=== PATIENT | female | born 1960 | race Caucasian/White ===

== ENCOUNTER 2025-04-22 19:04 | Inpatient (IN) | payer MEDICARE, BC ==
[~2025-04-22] VITALS: Ht 14 cm; Wt 68.4 kg
[2025-04-22 19:00] VITALS: BP 111/70; PULSE 67; RESP 14; TEMP 98.2; O2SAT 95
[2025-04-22] MEDS ORDERED: magnesium sulf-water 4G/100mL 100 ML IV PRN (20:00)
[2025-04-22] MEDS ORDERED: mag hydrox/Alum hydrox/simeth 30ml oral suspension PO PRN (20:00)
[2025-04-22] MEDS ORDERED: magnesium Cl slow-release 64mg tablet PO PRN (20:00)
[2025-04-22] MEDS ORDERED: magnesium sulf-water 2g/50mL 50 ML IV PRN (20:00)
[2025-04-22] MEDS: K and/or MAG REPLACEMENT MC SCH (20:00)
[2025-04-22] MEDS: PERFLUTREN PROTEIN-A MICROSPHR (Optison) 0.22 MG/ML 3ML VIAL IV ONE (20:00)
[2025-04-22] MEDS ORDERED: potassium Cl 20 mEq SR tablet PO PRN ×2 (20:00)
[2025-04-22] MEDS ORDERED: magnesium hydroxide 30ml (MOM) UD suspension PO PRN (20:00)
[2025-04-22] MEDS ORDERED: potassium Cl 40MEQ/1/2NS 520ml 520 ML IV PRN (20:00)
--- NOTE | 2025-04-22 20:20 | HISTORY AND PHYSICAL-Residence ---
History & Physical Providers to CC Resident Creating Document: PAYALBINDU MORELAND, RES CC: MARIA A CORREA MD ~ History of Present Illness Reason for Admit\Complaint: ATYPICAL CHEST PAIN History of Present Illness A 65-year-old patient is a transfer from [facility], patient was admitted in [facility] because of acute left-sided chest pain associated with radiation to jaw and neck. She rated the pain a five on 10, described the pain as stabbing with a combination of pressure kind of pain. Patient was sleeping well she experienced this chest pain. She eventually went to [place] [facility], EKG showed sinus bradycardia, initially troponins were negative as well. Patient was given NTG which relieved the pain. Patient was eventually admitted and worked up. Echocardiogram in [facility] which showed EF of 70-75% with no wall motion abnormalities. BNP was normal limits. Lexiscan which showed no significant focal ischemia. Abnormal dilation of left ventricle with stress causing an elevated TID of 1.57. Suggesting global coronary artery stenosis Echocardiogram showed EF of 70-75%, systolic function is hyperdynamic. No wall motion abnormalities were noted Patient lives in her house with her Patient's primary care doctor is Claudio Figueroa, red Mora Stated that she is normally an active person, ambulates on her own. Allergies: Coded Allergies: pollen extracts (Verified Allergy, Unknown, 04/22/25) Uncoded Allergies: DUST MITES (Allergy, Unknown, 04/22/25) Past Medical History Past Medical History Hyperlipidemia Anxiety Cervical dysplasia in the past for which she underwent mild ablation surgeries Past Surgical History Surgical History Comment Unilateral ovariectomy Past Social History Social History Comment Patient denies any alcohol/tobacco use history Patient states that she does smoke marijuana occasionally ROS ROS Constitutional: No fever, dizziness, no weakness, no decrease in appetite HEENT: Normal vision. No sore throat, epistaxis, tinnitus Cardiovascular: Mild chest pain/discomfort, no palpitations, syncope. no pedal edema Respiratory: No sob, cough,hemoptysis Gastrointestinal: No abdominal pain, nausea, vomiting. No diarrhea, melena. Genitourinary: No frquency, urgency, incontinence, nocturia. No dysuria, hematuria Musculoskeletal: Normal, no pains Endocrine: No fatigue, polydipsia, polyuria. No heat or cold intolerance Neurologic: No headache, vertigo. No weakness, numbness or tingling of extremities Psychiatric: No hallucinations/delusions, no anhedonia, no suicidal ideation Hematologic: No bruises Exam Vitals: Vital Signs Date Time Temp Pulse Resp B/P (MAP) Pulse Ox O2 Delivery O2 Flow Rate FiO2 04/22/25 18:50 59 General: General: Awake, oriented to person, place and time HEENT: Conjunctive are pink, sclerae clear, no icterus, pupil is equal in both sides, reactive to light, no ear discharge, no pharyngeal erythema or an edema. Neck: Supple, no JVD, no lymphadenopathy and thyromegaly. Chest: Equal air entry on both lungs, no additional sounds no rhonchi no wheezing at the moment. Cardiovascular: S1-S2 regular sinus rhythm and, regular rate, no gallops, no rubs, no murmurs Abdomen: No visible peristalsis, Bowel sounds present on auscultation, soft, no tenderness, no guarding, no rigidity Extremities: No obvious deformities, no pitting edema bilaterally, capillary refill intact, peripheral pulsations are intact on both sides Neurologic: Mental status: alert and conscious, oriented to place, person and time, preserved memory, normal speech. Cranial nerves I-XII: Normal. Motor system: Preserved power, coordination, no evidenced involuntary movements, strength 5/5 in four extremities. 2+ deep tendon reflexes in biceps, triceps, quadriceps. Negative Babinski. Cerebellar: No nystagmus, dysdiadochokinesia, normal xidenf-ya-jcyo testing. Musculoskeletal: No joint swelling, deformities, inflammations, and no scoliosis and back tenderness Skin: Warm and dry. Dry oral mucosa. Diagnostic Data Last Recorded Lab Results: 04/23/2551604/23/25516 Advance Care Planning Advanced Care plannin - 30 Minutes (Spent 17 minutes discussing advanced care directive/resuscitative measures, patient decided she want to be full code) Additional Plan Atypical chest pain Heart score three As per records from [place], patient's troponin was normal, EKG did not show any acute findings Lexiscan reported no significant focal ischemia. Abnormal dilation of left ventricle with stress causing an elevated TID of 1.57. Suggesting global coronary artery stenosis Echocardiogram showed EF of 70-75%, systolic function is hyperdynamic. No wall motion abnormalities were noted environmental monitoring specialist shows sinus bradycardia, no ST segment elevation or acute changes Patient does not meet criteria for NSTEMI/STEMI Plan Ordered serial EKGs, troponins Initiated the patient on aspirin 81 mg, atorvastatin 80 mg NTG 0.4 mg p.r.n. Morphine p.r.n. Consult cardiology in the a.m. Hyperlipidemia Ordered lipid panel Initiated the patient on 80 mg atorvastatin History of anxiety Waiting med rec Code Status: Full code DVT Prophylaxis: Heparin Analgesia/Sedation: Morphine Lines/Tubes: PIV Nutrition: NPO PT:yes Prognosis: Guarded Disposition: Continue to monitor serial troponins and serial EKGs. Continue telemetry monitoring. Consult Cardiology in the a.m. keeping the patient NPO as she might require cardiac catheterization in the morning Bindu Mantilla MD Internal medicine resident,PGY-1 Date of Service: Apr 22, 2025 Billing Provider: MARIA A CORREA MD Addendum Attestation I agree with the residents assessment and plan as below: 65 year old female with no pmhx admitted with chest pain Plan: repeat EKG trend troponin start asa and high intensity statin cardiology consult CCT 55 min using HIPPA compliant A/V technology BINDU MANTILLA, RES Apr 22, 2025 20:20 MARIA A CORREA MD Apr 23, 2025 12:28
[2025-04-22] MEDS: docusate sod 100mg capsule PO SCH (21:37)
[2025-04-22] MEDS: aspirin 81mg, enteric-coated 1 TAB TABLET.DR PO SCH (21:37)
[2025-04-22 22:00] VITALS: BP 113/49; PULSE 75; RESP 18; TEMP 98.1; O2SAT 94
[2025-04-22 22:33] LABS: CREATININE 0.64 MG/DL (0.40-0.90); TOTAL CARBON DIOXIDE 26.8 MMOL/L (24-32); eGFR > 90 ML/MIN
[2025-04-22 22:39] LABS: CHOL/HDL RATIO 3.2 (0.00-4.99); LDL CHOLESTEROL 101 MG/DL (50-100); PHOSPHORUS 3.4 MG/DL (2.3-4.5); PRO BRAIN NATRIURETIC PEPTIDE 71 PG/ML (0-125)
[2025-04-22 22:44] VITALS: RESP 13; O2SAT 96
[2025-04-22 23:04] LABS: MEAN PLATELET VOLUME 7.8 FL (7.4-10.4); RED CELL DISTRIBUTION WIDTH 13.7 % (11.5-14.5)
--- NOTE | 2025-04-22 23:24 | RADIOLOGY REPORT ---
CHEST RADIOGRAPH Indication: chest pain Technique: Single frontal view of the chest was obtained COMPARISON: None FINDINGS: Lines and Tubes: None Lungs: Clear Pleura: No effusion. No pneumothorax. Cardiomediastinal contours: Unremarkable Bones: Unremarkable IMPRESSION: 1. No acute disease.
[2025-04-22] MEDS: heparin, porcine 5000 units/ml vial SQ SCH (23:30)
[2025-04-22] MEDS: normal saline 1000ml 1,000 ML IV SCH (23:35)
[2025-04-23] VITALS (15 sets, daily range): BP systolic 100–139; BP diastolic 63–96; PULSE 61–112; RESP 8–18; TEMP 97.1–98.2; O2SAT 95–98
[2025-04-23 06:10] LABS: MEAN PLATELET VOLUME 8.0 FL (7.4-10.4); RED CELL DISTRIBUTION WIDTH 13.8 % (11.5-14.5)
[2025-04-23 06:26] LABS: CREATININE 0.61 MG/DL (0.40-0.90); TOTAL CARBON DIOXIDE 25.5 MMOL/L (24-32); eGFR > 90 ML/MIN
--- NOTE | 2025-04-23 07:53 | ELECTROCARDIOGRAPH REPORT ---
[facility] Test Date: 2025-04-23 Test Time: 07:50:58 Pat Name: SHRUTI CLOUD Department: [facility] 3S Patient ID: [facility]-[id number] Room: [place] [id number] A Gender: F Landscape Crew Member: RENATA : 1960 Requested By: GUERO MANTILLA Order Number: [id number] Reading MD: Dr. SADIE Zaman Measurements Intervals [place] Rate: 61 P: 1 AL: 146 QRS: 41 QRSD: 93 T: 23 QT: 407 QTc: 410 Interpretive Statements Sinus rhythm Borderline low voltage, extremity leads RSR' in V1 or V2, right VCD or RVH Electronically Signed On 04-23-2025 19:48:[address] SADIE Zaman Please click the below link to view image of tracing.
[2025-04-23] MEDS ORDERED: CHOL1CAP11 (09:57)
[2025-04-23] MEDS ORDERED: ATOR10TA87 PO (09:57)
[2025-04-23] MEDS ORDERED: CALC-1215 PO (09:57)
[2025-04-23] MEDS ORDERED: LORA10TA7 PO (09:57)
[2025-04-23] MEDS ORDERED: SELE200C3 PO (09:57)
[2025-04-23] MEDS ORDERED: HYDR-3686 PO (09:57)
[2025-04-23] MEDS ORDERED: MELA5TAB12 PO (09:57)
[2025-04-23] MEDS ORDERED: ALEN70TA80 PO (09:57)
[2025-04-23] MEDS ORDERED: ESCI-8 PO (09:57)
[2025-04-23] MEDS ORDERED: AZEL137S4 BOTHNARES (09:57)
[2025-04-23] MEDS ORDERED: MAGN400C PO (09:57)
[2025-04-23] MEDS ORDERED: MULT-1085 PO (09:57)
[2025-04-23] MEDS: HYDROcodone/acetaminophen 5mg/325mg tablet PO PRN (14:26)
[2025-04-23] MEDS ORDERED: fentaNYL/PF 50MCG/1 ML 2ML syringe ONE (15:58)
[2025-04-23] MEDS ORDERED: midazolam 1 mg/ML 2ml injection ONE (15:58)
[2025-04-23] MEDS ORDERED: LIDOcaine 1% (10mg/ml) 2ml vial ONE (15:58)
[2025-04-23] MEDS ORDERED: verapamil 2.5 mg/ml inj IV ONE (15:58)
[2025-04-23] MEDS ORDERED: heparin 1,000unit/ml 10ml vial 10 ML ONE (15:59)
[2025-04-23] MEDS ORDERED: iohexol 350 MG/ML 50ML vial IV ONE (15:59)
[2025-04-23] MEDS ORDERED: nitroGLYCERIN 500mcg/5mL D5W 5 ML IV ONE (16:00)
--- NOTE | 2025-04-23 16:24 | CONSULTATION REPORT - RESIDENT ---
Consult Providers to CC Resident Creating Document: SNEHA HAMEED, RES CC: GARRICK HOPE MD History of Present Illness Reason for Admit\Complaint: Abnormal Lexiscan History of Present Illness A 65-year-old female with PMH of HLD was transferred from [place] in view of abnormal Lexiscan. On further conversations with the patient, patient states that she has intermittent chest pains that has been constant for one day- the day prior to admission, substernal in location, 6/10 in severity, increased on deep inspiration with radiation to the neck and jaw. Patient had associated shortness of breath, dizziness, diaphoresis during this episode. Patient was given one tab of nitro and aspirin that did not relieve his chest pain. Patient was given morphine at helped with chest pain. Patient had a Lexiscan done at [place] that revealed no reversible defect but transient ischemic dilatation of 1.5 indicating global coronary artery disease. Cardiology is consulted in view of the above. Allergies: Coded Allergies: pollen extracts (Verified Allergy, Unknown, 04/22/25) Uncoded Allergies: DUST MITES (Allergy, Unknown, 04/22/25) Home Medications Home Medications Active Reported Melatonin 5 Mg Tab.rapdis 1 Tab PO HS PRN 30 Days Magnesium (Magnesium Oxide) 400 Mg Magnesium Capsule 2 Cap PO DAILY 30 Days Calcium + D 600 Mg Tablet (Calcium Carbonate/Vitamin D3) 600 Mg Calcium-10 Mcg (400 Unit) Tablet 2 Tab PO DAILY 30 Days K2-D3 5000 90-125 Mcg Capsule (Cholecalciferol (Vitd3)/Vit K2) 125 Mcg (5000 Unit)-90 Mcg Capsule Multi Vitamin Daily (Multivitamin) 1 Each Tablet 1 Tab PO DAILY 30 Days Selenium (Selenomethionine) 200 Mcg Capsule 100 Mcg PO DAILY Loratadine 10 Mg Tablet 1 Tab PO DAILY 30 Days Alendronate Sodium 70 Mg Tablet 1 Tab PO Q7D 28 Days in the morning, at least 30 minutes before the first food, beverage, or medication of the day Atarax* (Hydroxyzine HCl) 25 Mg Tablet 2 Tab PO HS PRN Escitalopram Oxalate 10 Mg Tablet 1 Tab PO DAILY 30 Days Lipitor* (Atorvastatin Calcium) 10 Mg Tablet 1 Tab PO DAILY 30 Days Azelastine HCl 137 Mcg (0.1 %) [place].pump 2 Sprays BOTHNARES Q12H 30 Days Past Medical History Past Medical History HLD Anxiety Cervical dysplasia Past Surgical History Surgical History Comment Unilateral ovariectomy Family History Family History: FHx: cancer MOTHER Past Social History Social History Comment Denies alcohol, tobacco use She smokes marijuana occasionally Lives at home with her has been PCP: Claudio Figueroa, kiera Sherman Exam Vitals: Vital Signs Date Time Temp Pulse Resp B/P (MAP) Pulse Ox O2 Delivery O2 Flow Rate FiO2 04/23/25 15:30 18 04/23/25 15:00 97.2 70 125/72 (89) 97 Room Air General: General: Alert, awake, oriented, not in acute distress HEENT: PERRLA, no icterus, pallor, lymphadenopathy, carotid bruit Respiratory system: Bilateral vesicular breath sounds heard, no adventitious breath sounds CVS: S1-S2 heard, no murmurs/rubs/gallop GI: Soft, nontender, no organomegaly, no guarding/rigidity, bowel sounds present Neuro: No focal neurological deficits present Mental status exam: memory, speech -intact - Cranial nerve test: Cranial nerves 2-12 intact - Motor system: Nutrition, Tone 3+, Power 5/5, no involuntary movements - Sensory system: Intact - Reflex testing: Biceps, triceps and knee reflexes 2+ - Cerebellar: Normal Extremities: No edema cyanosis clubbing/deformities Skin: Warm and dry Diagnostic Data Last Recorded Lab Results: 04/23/2551604/23/25516 Additional Plan Assessment: 65-year-old female with PMH of HLD was transferred from [facility] in view of abnormal Lexiscan. Speech Professor consulted in view of the above. Plan: CAD, under evaluation Lexiscan: TID indicative of global CAD Echo: EF: 70-75% at OSH with no wall motion abnormalities Patient is scheduled for cardiac catheterization today Aspirin 81 mg, atorvastatin 80 mg, nitroglycerin 0.4 mg p.r.n. Hyperlipidemia LDL: 101 Continue atorvastatin 80 mg Code status: Full code Diet: Heart healthy Anticoagulation: Aspirin 81 mg Disposition: Scheduled for cardiac catheterization today, cardiology we will continue to follow up with the patient Sneha Hameed MD Internal Medicine, PGY 2 Patient seen and examined by Dr. Inocencia BENJAMIN. Subsequently patient underwent coronary angiography with no significant CAD. Sepsis Screening Reassessment Date: Apr 23, 2025 Date of Service: Apr 23, 2025 Billing Provider: GARRICK HOPE MD, SIVA, RES Apr 23, 2025 16:23 GARRICK HOPE MD Apr 23, 2025 20:25
--- NOTE | 2025-04-23 16:26 | PROGRESS NOTE- Residence ---
Progress Note - Resident Providers to CC Resident Creating Document: YARA GOSS RES ~ Antibiotic Timeout Antibiotic Ordered?: No Subjective Patient was seen and examined at the bedside. She is completely asymptomatic at this moment. She reports a history of significant left side chest pain two days ago while walking to the bathroom, resolved after she went to the ER. Troponins were negative, Lexiscan was concerning for coronary artery disease and she was transferred here for further management. No chest pain or shortness for breath since admission. Objective Vital Signs Date Time Temp Pulse Resp B/P (MAP) Pulse Ox O2 Delivery O2 Flow Rate FiO2 04/23/25 15:30 18 04/23/25 11:00 98.1 81 120/70 (87) 98 Room Air Result Diagram: 04/23/2551604/23/25516 General: Awake, oriented to person, place and time HEENT: Conjunctive are pink, sclerae clear, no icterus, pupil is equal in both sides, reactive to light, no ear discharge, no pharyngeal erythema or an edema. Neck: Supple, no JVD, no lymphadenopathy and thyromegaly. Chest: Equal air entry on both lungs, no additional sounds no rhonchi no wheezing at the moment. Cardiovascular: S1-S2 regular sinus rhythm and, regular rate, no gallops, no rubs, no murmurs Abdomen: No visible peristalsis, Bowel sounds present on auscultation, soft, no tenderness, no guarding, no rigidity Extremities: No obvious deformities, no pitting edema bilaterally, capillary refill intact, peripheral pulsations are intact on both sides Neurologic: Mental status: alert and conscious, oriented to place, person and time, preserved memory, normal speech. Cranial nerves I-XII: Normal. Motor system: Preserved power, coordination, no evidenced involuntary movements, strength 5/5 in four extremities. 2+ deep tendon reflexes in biceps, triceps, quadriceps. Negative Babinski. Cerebellar: No nystagmus, dysdiadochokinesia, normal pbftip-pd-ykjz testing. Musculoskeletal: No joint swelling, deformities, inflammations, and no scoliosis and back tenderness Skin: Warm and dry. Moist oral mucosa. Plan Plan Assessment A 65-year-old female patient was transferred from [facility] due to chest pain and altered Lexiscan results. 1) Chest Pain: Rule Out ACS Global coronary artery disease is suspected. - Heart Score: 3 points - The patient experienced severe left-sided chest pain two days ago, which radiated to the jaw but was relieved with nitroglycerin. - The Lexiscan indicated no significant focal ischemia but showed abnormal dilation of the left ventricle with stress, resulting in an elevated TID of 1.57, suggesting global coronary artery stenosis. - Echocardiogram revealed an EF of 70-75%, with hyperdynamic systolic function and no wall motion abnormalities noted. - Chest x-ray: No acute disease. - The patient presented with sinus bradycardia; the heart rate is now in the 70s, with no ST segment elevation or acute changes. Plan - The patient has been started on: - Aspirin 81 mg - Atorvastatin 80 mg (increased from 20 mg) - Nitroglycerin 0.4 mg as needed - Cardiology has been consulted. - Angiogram is planned for tonight or tomorrow morning. - Continuous telemetry 2) Hyperlipidemia: well-controlled - Cholesterol: 191, Triglycerides: 114, LDL: 101,HDL: 60 - Atorvastatin increased from 20 mg to 80 mg daily 3) History of anxiety and depression -Continue citalopram daily. Code Status: Full code DVT Prophylaxis: Heparin Analgesia/Sedation: Morphine Lines/Tubes: PIV Nutrition: NPO PT: Pending Prognosis: Guarded Disposition: Continue medical treatment, pending angiogram. Resident MD attestation The above note has been reviewed and supervised by a senior resident PGY2/PGY3 Patient was seen, examined and discussed with the attending physician Date of Service: Apr 23, 2025 Billing Provider: JOHNATHON VAZ MD, LUCAS, RES Apr 23, 2025 16:26
[2025-04-23] MEDS: normal saline 1000ml 1,000 ML IV SCH ×2 (17:54→23:22)
--- NOTE | 2025-04-23 18:09 | CARDIOLOGY REPORT ---
DATE OF SERVICE: 04/23/2025 DICTATING PHYSICIAN: SADIE Zaman MD DATE OF PROCEDURE: 04/23/2025 GENDER: Female. AGE: 65 years. HEIGHT: 5 feet 5 inches (165 cm). WEIGHT: 68.4 kg. INDICATION: The patient is a 65-year-old postmenopausal female with hyperlipidemia, developed epigastric substernal chest discomfort radiating to the left side, went to [facility], underwent echocardiogram which showed EF of 70% to 75% and a myocardial perfusion scan showed abnormal dilation of the left ventricle with stress causing an ST elevated TID of 1.57. Because of this, she was transferred to [facility]. Her troponins are negative. Option of continuing medical therapy or further coronary angiography with risks, benefits, and alternatives were discussed in detail with the patient. The patient in view of her age, hyperlipidemia, family history and symptoms, preferred to proceed with coronary angiography. Risks, benefits, and alternative options were discussed and informed consent obtained. PROCEDURE TECHNIQUE: The patient underwent left heart catheterization with right radial approach, 6-Hungarian right radial sheath. Postprocedure access site hemostasis with right radial band. The patient tolerated the procedure well. COMPLICATIONS: None. PROCEDURES DONE: 1. Ultrasound-guided right radial artery visualization access. 2. Left heart catheterization. 3. LVG. 4. Coronary cineangiography. 5. Conscious sedation time for 30 minutes. FINDINGS: HEMODYNAMICS: Aortic systolic 120/59, mean 83 mmHg. LVEDP of 10 mmHg. There is no significant gradient across the aortic valve. LEFT VENTRICULOGRAM: Overall left ventricular systolic function is about 65% to 70%. CORONARY CINEANGIOGRAPHY: Left main coronary artery is of large caliber without any luminal irregularities and engaged with JL4 catheter, right radial approach. LAD is a medium caliber vessel arising at the bifurcation of left main, courses through the anterior intraventricular groove and ends up by wrapping around the apex. LAD has minimal luminal irregularities. Diagonal 1 is 2.25 mm with minimal luminal irregularities. Diagonal 2 is 2 mm caliber with minimal luminal irregularities. Circumflex artery is a medium caliber vessel, continuing as a principal obtuse marginal branch, is 3 mm in diameter with mild luminal irregularities. Right coronary artery is a medium caliber dominant vessel arising from the right aortic sinus, courses the right AV groove, ends at the posterior crux by dividing into PDA and a posterolateral branch. RCA and its branches show mild luminal irregularities. IMPRESSION: A 65-year-old female with ejection fraction of 65% to 70%. LVEDP 16 mmHg. No gradient across the aortic valve. Left main normal. LAD and diagonal minimal disease. Circumflex with minimal disease. RCA minor luminal irregularities. RECOMMENDATIONS: Recommend continued aggressive coronary risk factor modification, namely low-fat/low-cholesterol diet, maintaining ideal body weight, keeping LDL under 70 mg/dL, and regular exercise program. SADIE Zaman MD TID: [id number] RECEIPT: [id number] CRISTIAN/TAMMY cc: TATIANNA HAY DO
--- NOTE | 2025-04-23 19:34 | CARDIOLOGY REPORT ---
APPROVED REPORT EXAM: Limited 2D, Doppler, and color-flow Echocardiogram. Patient Location: 302 Blood Pressure: 100/63 mmHg Heart Rate: 73 bpm Rhythm: NSR Indications Chest Pain Limited to evaluate function No spike driver Previous echo 04/21/25 St E 70-75% EF 2D Dimensions Aortic Root(2D) 3.1 cm LEFT VENTRICLE LV appears normal in size and thickness. Overall systolic function appears normal. Overall LVEF is 70%. RIGHT VENTRICLE RV appears normal in size and function. MITRAL VALVE MV is thickened with mild annular thickening and no stenosis. Trivial mitral regurgitation. TRICUSPID VALVE The tricuspid valve is normal in structure. Trace tricuspid regurgitation. GREAT VESSELS The aortic root is normal in size. PERICARDIUM There is no pericardial effusion. Other Information Study Quality: Adequate Conclusion Overall LVEF is 70%. LV appears normal in size and thickness. Overall systolic function appears normal. RV appears normal in size and function. Trivial mitral regurgitation. Trace tricuspid regurgitation. There is no pericardial effusion.
[2025-04-23] MEDS: azelastine Nasal Spray bottle NS SCH (21:09)
[2025-04-23] MEDS: ondansetron/PF 4mg/2ml inj IV PRN (21:39)
[2025-04-24 02:00] VITALS: BP 102/60; PULSE 76; RESP 14; TEMP 97.5; O2SAT 94
[2025-04-24 06:00] VITALS: BP 114/71; PULSE 70; RESP 12; TEMP 97.2; O2SAT 97
[2025-04-24 06:33] LABS: MEAN PLATELET VOLUME 8.2 FL (7.4-10.4); RED CELL DISTRIBUTION WIDTH 13.4 % (11.5-14.5)
[2025-04-24 06:45] LABS: CREATININE 0.47 MG/DL (0.40-0.90); TOTAL CARBON DIOXIDE 26.7 MMOL/L (24-32); eGFR > 90 ML/MIN
[2025-04-24 08:00] VITALS: RESP 14; O2SAT 96
--- NOTE | 2025-04-24 08:19 | ELECTROCARDIOGRAPH REPORT ---
[facility] Test Date: 2025-04-24 Test Time: 07:06:20 Pat Name: SHRUTI CLOUD Department: [facility] 3S Patient ID: [id number] Room: [place] [id number] A Gender: F Phlebotomy Specialist: RENATA : 1960 Requested By: GARRICK HOPE Order Number: [id number] Reading MD: Dr. SADIE Hope Measurements Intervals [place] Rate: 68 P: 21 SC: 150 QRS: 56 QRSD: 103 T: 50 QT: 403 QTc: 429 Interpretive Statements Sinus rhythm RSR' in V1 or V2, right VCD or RVH Electronically Signed On 04-24-2025 16:51:[address] SADIE Hope Please click the below link to view image of tracing.
[2025-04-24] MEDS: ESCITALOPRAM 10 mg tablet 10 MG TABLET PO SCH (08:33)
[2025-04-24] MEDS ORDERED: ATOR20TA66 PO (08:52)
--- NOTE | 2025-04-24 10:32 | PROGRESS NOTE- Residence ---
Progress Note - Resident Providers to CC Resident Creating Document: ANDREA HUDDLESTON, RES CC: GARRICK HOPE MD ~ Antibiotic Timeout Antibiotic Ordered?: No Subjective Patient is seen and examined at bedside. Patient states that she has having a headache and feeling nauseous this morning. Otherwise she does not have any new complaints with regards to chest pain, palpitations, shortness of breaths. Patient underwent cardiac catheterization yesterday and revealed mild to moderate CAD. Objective Vital Signs Date Time Temp Pulse Resp B/P (MAP) Pulse Ox O2 Delivery O2 Flow Rate FiO2 04/24/25 06:00 97.2 70 12 114/71 (85) 97 Room Air Result Diagram: 04/24/2554204/24/25542 General: Alert, awake, oriented, not in acute distress HEENT: PERRLA, no icterus, pallor, lymphadenopathy, carotid bruit Respiratory system: Bilateral vesicular breath sounds heard, no adventitious breath sounds CVS: S1-S2 heard, no murmurs/rubs/gallop GI: Soft, nontender, no organomegaly, no guarding/rigidity, bowel sounds present Neuro: No focal neurological deficits present Mental status exam: memory, speech -intact - Cranial nerve test: Cranial nerves 2-12 intact - Motor system: Nutrition, Tone 3+, Power 5/5, no involuntary movements - Sensory system: Intact - Reflex testing: Biceps, triceps and knee reflexes 2+ - Cerebellar: Normal Extremities: No edema cyanosis clubbing/deformities Skin: Warm and dry Plan Plan Mild CAD s/p cardiac catheterization Cardiac catheterization revealed mild luminal irregularities in LAD, diagonal one and two, circumflex, RCA and its branches Aspirin 81 mg, atorvastatin 80 mg, nitroglycerin 0.4 mg p.r.n. Hyperlipidemia LDL: 101 Continue atorvastatin 80 mg Code status: Full code Diet: Heart healthy Anticoagulation: Aspirin 81 mg Disposition: Patient can be discharged per the primary care team Andrea Huddleston MD Internal Medicine, PGY 2 Patient seen and examined by Dr. Inocencia BENJAMIN Date of Service: Apr 24, 2025 Billing Provider: GARRICK HOPE MD, SIVA, RES Apr 24, 2025 10:32 GARRICK HOPE MD Apr 24, 2025 17:17
--- NOTE | 2025-04-24 19:39 | DISCHARGE SUMMARY-Residence ---
Discharge Summary Providers to CC Resident Creating Document: YARA GOSS RES ~ Discharge Summary Admission Diagnosis: ATYPICAL CHEST PAIN Hospital Course DATE OF ADMISSION: 04/22/25 DATE OF DISCHARGE: 04/24/25 Chest x-ray No acute disease. Echocardiogram Overall LVEF is 70%. LV appears normal in size and thickness. Overall systolic function appears normal. RV appears normal in size and function. Trivial mitral regurgitation. Trace tricuspid regurgitation. There is no pericardial effusion. Discharge Diagnosis\\Comment: 1) Chest Pain: Unclear etiology, possibly musculoskeletal ACS ruled out CAD ruled out 2) Hyperlipidemia: well-controlled 3) History of anxiety and depression Operations\\Procedures: Cardiac angiogram Consultants: Cardiology Complications: None Condition on DC: Stable New Medications: Atorvastatin Calcium (Atorvastatin Calcium) 20 Mg Tablet 20 MG PO DAILY for 30 Days, #30 TAB Continued Medications: Alendronate Sodium (Alendronate Sodium) 70 Mg Tablet 1 TAB PO Q7D for 28 Days, #4 TAB 0 Refills in the morning, at least 30 minutes before the first food, beverage, or medication of the day Azelastine HCl (Azelastine HCl) 137 Mcg (0.1 %) [email or web address].pump 2 SPRAYS BOTHNARES Q12H for 30 Days, #30 ML 0 Refills Calcium Carbonate/Vitamin D3 (Calcium + D 600 Mg Tablet) 600 Mg Calcium-10 Mcg (400 Unit) Tablet 2 TAB PO DAILY for 30 Days, #60 TAB 0 Refills Cholecalciferol (Vitd3)/Vit K2 (K2-D3 5000 90-125 Mcg Capsule) 125 Mcg (5000 Unit)-90 Mcg Capsule Escitalopram Oxalate (Escitalopram Oxalate) 10 Mg Tablet 1 TAB PO DAILY for 30 Days, #30 TAB 0 Refills Hydroxyzine Hcl* (Atarax*) 25 Mg Tablet 2 TAB PO HS PRN for for anxiety/agitation, TAB Loratadine (Loratadine) 10 Mg Tablet 1 TAB PO DAILY for allergy symptoms for 30 Days, #30 TAB 0 Refills Magnesium Oxide (Magnesium) 400 Mg Magnesium Capsule 2 CAP PO DAILY for 30 Days, #30 CAP 0 Refills Melatonin (Melatonin) 5 Mg Tab.rapdis 1 TAB PO HS PRN for sleep for 30 Days, #30 TAB 0 Refills Multivitamin (Multi Vitamin Daily) 1 Each Tablet 1 TAB PO DAILY for 30 Days, #30 TAB 0 Refills Selenomethionine (Selenium) 200 Mcg Capsule 100 MCG PO DAILY Discontinued Medications: Atorvastatin Calcium* (Lipitor*) 10 Mg Tablet 1 TAB PO DAILY for 30 Days, #30 TAB Discharge Summary: History of present illness The patient was admitted with the following HPI: "A 65-year-old patient is a transfer from [facility], patient was admitted in [facility] because of acute left-sided chest pain associated with radiation to jaw and neck. She rated the pain a five on 10, described the pain as stabbing with a combination of pressure kind of pain. Patient was sleeping well she experienced this chest pain. She eventually went to [facility], EKG showed sinus bradycardia, initially troponins were negative as well. Patient was given NTG which relieved the pain. Patient was eventually admitted and worked up. Echocardiogram in [facility] which showed EF of 70-75% with no wall motion abnormalities. BNP was normal limits. Lexiscan which showed no significant focal ischemia. Abnormal dilation of left ventricle with stress causing an elevated TID of 1.57. Suggesting global coronary artery stenosis Echocardiogram showed EF of 70-75%, systolic function is hyperdynamic. No wall motion abnormalities were noted" Hospital course This is a 65-year-old male patient who was transferred from [facility] after experiencing a self-resolving episode of left-sided chest pain and a Lexiscan that raised concerns for coronary artery disease. During this hospitalization, the patient remained completely asymptomatic and did not experience any episodes of chest pain, shortness of breath, palpitations, or lightheadedness. Initially, the patient was started on aspirin and atorvastatin. He was evaluated by Dr. Guy, and a cardiac angiogram was performed, which did not reveal any signs of coronary artery disease. The patient is stable and ready for discharge. It is recommended that he follow up with his primary care physician and continue aggressive modification of coronary risk factors, including adhering to a low-fat and low-cholesterol diet, maintaining an ideal body weight, keeping LDL levels under 70 mg/dL, and engaging in a regular exercise program. Discharge physical exam General: Awake, oriented to person, place and time HEENT: Conjunctive are pink, sclerae clear, no icterus, pupil is equal in both sides, reactive to light, no ear discharge, no pharyngeal erythema or an edema. Neck: Supple, no JVD, no lymphadenopathy and thyromegaly. Chest: Equal air entry on both lungs, no additional sounds no rhonchi no wheezing at the moment. Cardiovascular: S1-S2 regular sinus rhythm and, regular rate, no gallops, no rubs, no murmurs Abdomen: No visible peristalsis, Bowel sounds present on auscultation, soft, no tenderness, no guarding, no rigidity Extremities: No obvious deformities, no pitting edema bilaterally, capillary refill intact, peripheral pulsations are intact on both sides Neurologic: Mental status: alert and conscious, oriented to place, person and time, preserved memory, normal speech. Cranial nerves I-XII: Normal. Motor system: Preserved power, coordination, no evidenced involuntary movements, strength 5/5 in four extremities. 2+ deep tendon reflexes in biceps, triceps, quadriceps. Negative Babinski. Cerebellar: No nystagmus, dysdiadochokinesia, normal [id number] testing. Musculoskeletal: No joint swelling, deformities, inflammations, and no scoliosis and back tenderness Skin: Warm and dry. Moist oral mucosa. Discharge medications New Medications: Atorvastatin Calcium 20 Mg Tablet Continued Medications: Alendronate Sodium 70 Mg Tablet in the morning, at least 30 minutes before the first food, beverage, or medication of the day Azelastine HCl 137 Mcg (0.1 %) [email or web address].pump Calcium Carbonate/Vitamin D3 (Calcium + D 600 Mg Tablet) 600 Mg Calcium-10 Mcg (400 Unit) Tablet Cholecalciferol (Vitd3)/Vit K2 (K2-D3 5000 90-125 Mcg Capsule) 125 Mcg (5000 Unit)-90 Mcg Capsule Escitalopram Oxalate 10 Mg Tablet Hydroxyzine Hcl* (Atarax*) 25 Mg Tablet Loratadine 10 Mg Tablet Magnesium Oxide (Magnesium) 400 Mg Magnesium Capsule Melatonin 5 Mg Tab.rapdis Multivitamin (Multi Vitamin Daily) 1 Each Tablet Selenomethionine (Selenium) 200 Mcg Capsule Discontinued Medications: Atorvastatin Calcium* (Lipitor*) 10 Mg Tablet Discharge instructions Follow-up with primary care physician in one week Follow up with Dr Zaman in 3-6 months Increase your atorvastatin to 20 mg daily Continue home medication Monitor blood pressure closely Eat a healthy diet and exercise frequently Come back in case of recurrent chest pain, shortness of breath, fever or any concerning symptoms *Problems/Diagnosis: (1) Chest pain Status: Acute (2) Hyperlipidemia Status: Chronic Total Time Spent on D/C: > 30 Minutes Date of Service: Apr 24, 2025 Billing Provider: JOHNATHON VAZ MD Problem Qualifiers (1) Chest pain: Chest pain type: unspecified Qualified Codes: R07.9 - Chest pain, unspecified YARA GOSS, LOREE Apr 24, 2025 19:39
== END 2025-04-24 14:29 | disposition home or self-care (01) | DRG 287 ==
LOC: PCU 3S 19:04
PROVIDERS: ADMIT Family Medicine; ATTEND Family Medicine
PROC: 4A023N7 Measurement of Cardiac Sampling and Pressure, Left Heart, Percutaneous Approach (ICD-10-PCS; principal; 2025-04-23)
PROC: B2111ZZ Fluoroscopy of Multiple Coronary Arteries using Low Osmolar Contrast (ICD-10-PCS; 2025-04-23)
PROC: B2151ZZ Fluoroscopy of Left Heart using Low Osmolar Contrast (ICD-10-PCS; 2025-04-23)
DX: R07.89 Other chest pain (principal); E78.5 Hyperlipidemia, unspecified; F41.9 Anxiety disorder, unspecified
CPT/HCPCS: 36415; 71045; 76937; 80053; 80061; 82948; 83735; 83880; 84100; 84484; 85025; 87081; 93005; 93308; 93458; 99152; 99153; 99285; A6258; C1725; C1894; G0378; J1644; J2003; J2250; J2405; J3010; J3490; J7030; Q9967